=== PATIENT | female | born 1950 | race Caucasian/White ===

== ENCOUNTER 2021-10-23 23:47 | Emergency (ER) | payer MEDICARE, OTHER ==
[~2021-10-23] VITALS: Ht 160 cm; Wt 95.5 kg
[~2021-10-23 23:47] MED LIST: ASPIRIN E.C. 8181 MG PO; CALCIUM500 MG PO; FERROUS SU325 MG/TAB PO; FOLIC ACID0.4 MG PO; PRINIVIL20 MG PO; VITAMIN C500 MG PO; VITAMIN D31000 IU PO
[2021-10-24] VITALS: TEMP 101.5
[2021-10-24 00:50] LABS: BASO % 0.4 % (0.0-2.0); GRAN # 3.8 K/mm3 (1.4-6.5); GRAN % 72.4 % (42.2-75.2); HEMATOCRIT 48.2 % (37.0-47.0); HEMOGLOBIN 15.4 g/dl (12.5-16.0); LYMPH # 0.8 K/mm3 (1.2-3.4); LYMPH % 15.6 % (20.0-51.0); MEAN CELL VOLUME 88 fl (80.0-100.0); MEAN CORPUSCULAR HEMOGLOBIN 28 pg (27-31); MEAN CORPUSCULAR HGB CONC 32 g/dl (33.0-37.0); MEAN PLATELET VOLUME 10.3 fl (7.4-10.4); MONO # 0.6 K/mm3 (0.1-0.6); PLATELET COUNT 199 K/mm3 (130-400); RED BLOOD COUNT 5.49 M/mm3 (4.10-5.30); REDCELL DISTRIBUTION WIDTH-CV 14.8 % (11.5-14.5)
[2021-10-24 01:35] LABS: BILIRUBIN,TOTAL 0.4 mg/dL (0.2-1.2); CALCIUM 8.1 mg/dL (8.4-10.2); CREATININE, serum 1.42 mg/dL (0.57-1.11); POTASSIUM 5.7 mmol/L (3.5-4.5); TOTAL PROTEIN 6.3 gm/dL (6.2-8.1)
[2021-10-24] MEDS ORDERED: PREDNISONE20 MG PO (02:03)
[2021-10-24] MEDS ORDERED: AMOXICILLIN 8751 TAB PO (02:03)
[2021-10-24 02:06] VITALS: BP 134/78; PULSE 104
== END 2021-10-24 02:06 | disposition home or self-care (01) ==
LOC: COL.ER 23:47
PROVIDERS: Personal Emergency Response Attendant
DX: U07.1 COVID-19 (principal); E87.5 Hyperkalemia; J18.9 Pneumonia, unspecified organism; N28.9 Disorder of kidney and ureter, unspecified; J44.9 Chronic obstructive pulmonary disease, unspecified; Z87.891 Personal history of nicotine dependence; Z73.0 Burn-out
CPT/HCPCS: J0456; J0696; J7030; J7050

== ENCOUNTER → 2021-10-29 | Outpatient (CLI) | payer MEDICARE, OTHER ==
[~2021-10-29] MED LIST changes: +AMOXICILLIN 8751 TAB PO; +PREDNISONE20 MG PO
== END ==
LOC: COL.RAD 12:46
DX: J18.9 Pneumonia, unspecified organism (principal); J39.8 Other specified diseases of upper respiratory tract; R91.8 Other nonspecific abnormal finding of lung field; J47.9 Bronchiectasis, uncomplicated; J84.10 Pulmonary fibrosis, unspecified; D35.02 Benign neoplasm of left adrenal gland; Z90.49 Acquired absence of other specified parts of digestive tract

== ENCOUNTER 2021-11-13 10:23 | Emergency (ER) | payer MEDICARE, OTHER ==
[~2021-11-13] VITALS: Ht 160 cm; Wt 113.6 kg
[2021-11-13] MEDS ORDERED: SINGULAIR 110 MG/TAB PO (11:14)
[2021-11-13] MEDS ORDERED: FLOVENT 110MCG7.9 GM IH (11:15)
[2021-11-13] MEDS ORDERED: PHENERGAN 25 TA25 MG PO (11:16)
[2021-11-13] MEDS ORDERED: SPIRIVA RE2.5 MCG/Ac IH (11:18)
[2021-11-13] MEDS ORDERED: PROAIR HFA0.09 MG/AC IH (11:18)
[2021-11-13] MEDS ORDERED: RT ADVAIR 128 DISKUS IH (11:18)
[2021-11-13] MEDS ORDERED: XARELTO STARTER20 MG PO ×2 (13:36)
[2021-11-13 13:54] VITALS: BP 156/87
[2021-11-13 14:50] VITALS: PULSE 124; TEMP 98.8
== END 2021-11-13 15:00 | disposition home or self-care (01) ==
LOC: COL.ER 10:23
DX: I82.451 Acute embolism and thrombosis of right peroneal vein (principal); Z86.16 Personal history of COVID-19; Z79.01 Long term (current) use of anticoagulants

== ENCOUNTER → 2022-01-23 | Outpatient (CLI) | payer MEDICARE, OTHER ==
[~2022-01-23] MED LIST changes: +FLOVENT 110MCG7.9 GM IH; +PHENERGAN 25 TA25 MG PO; +PROAIR HFA0.09 MG/AC IH; +RT ADVAIR 128 DISKUS IH; +SINGULAIR 110 MG/TAB PO; +SPIRIVA RE2.5 MCG/Ac IH; +XARELTO STARTER20 MG PO
== END ==
LOC: COL.VAS 14:15
DX: I82.401 Acute embolism and thrombosis of unspecified deep veins of right lower extremity (principal)

== ENCOUNTER 2024-05-05 20:19 | Emergency (ER) | payer MEDICARE, OTHER ==
[~2024-05-05] VITALS: Ht 157.5 cm; Wt 81.8 kg
[2024-05-05 20:22] VITALS: TEMP 100.2
[2024-05-05 20:45] LABS: BASO # 0.1 K/mm3 (0.0-0.2); BASO % 0.7 % (0.0-2.0); EOS % 0.3 % (0.0-4.0); GRAN # 12.8 K/mm3 (1.4-6.5); GRAN % 84.3 % (42.2-75.2); HEMATOCRIT 40.8 % (37.0-47.0); HEMOGLOBIN 13.2 g/dl (12.5-16.0); LYMPH # 1.2 K/mm3 (1.2-3.4); LYMPH % 8.1 % (20.0-51.0); MEAN CELL VOLUME 91 fl (80.0-100.0); MEAN CORPUSCULAR HEMOGLOBIN 29 pg (27-31); MEAN CORPUSCULAR HGB CONC 32 g/dl (33.0-37.0); MEAN PLATELET VOLUME 10.2 fl (7.4-10.4); MONO # 0.9 K/mm3 (0.1-0.6); MONO % 6.1 % (1.7-9.3); PLATELET COUNT 333 K/mm3 (130-400); REDCELL DISTRIBUTION WIDTH-CV 13.9 % (11.5-14.5)
[2024-05-05 20:52] LABS: INR 1.1 (0.8-3.0); PROTHROMBIN TIME 11.4 SECONDS (9.7-12.8)
[2024-05-05 20:54] LABS: PARTIAL THROMBOPLASTIN TIME 31.7 SECONDS (26.0-37.0)
[2024-05-05 21:08] LABS: ALANINE AMINOTRANSFERASE 45 U/L (0-55); ALBUMIN 3.6 g/dL (3.4-4.8); ALKALINE PHOSPHATASE 152 U/L (40-150); ANION GAP 11 mmol/L (7-16); AST,SGOT 33 U/L (5-34); BILIRUBIN,TOTAL 0.3 mg/dL (0.2-1.2); BLOOD UREA NITROGEN 25 mg/dL (10-20); CALCIUM 9.3 mg/dL (8.4-10.2); CHLORIDE 105 mEq/L (98-107); CREATININE, serum 1.26 mg/dL (0.57-1.11); GLUCOSE 117 mg/dL (70-99); POTASSIUM 4.2 mEq/L (3.5-4.5); SODIUM 140 mEq/L (136-145); TOTAL PROTEIN 6.8 g/dl (6.2-8.1)
[2024-05-05 21:16] LABS: TROPONIN-I < 0.010 ng/mL (0.00-0.033)
[2024-05-05 22:43] LABS: COLLECTION METHOD CATHETER
[2024-05-05 22:52] LABS: PH 6.5 (5.0-8.5); URINE APPEARANCE CLEAR (CLEAR/HAZY); URINE BLOOD NEGATIVE (NEGATIVE); URINE COLOR YELLOW (YELLOW); URINE GLUCOSE NEGATIVE (NEGATIVE); URINE KETONE 1+ (NEGATIVE); URINE NITRATE NEGATIVE (NEGATIVE); URINE PROTEIN(semi-quant) 1+ (NEGATIVE)
[2024-05-05 23:00] LABS: MUCOUS PRESENT (NOT PRESENT); SQUAMOUS EPITHELIAL 0-2 /hpf (0-10); URINE RBC 0-2 /hpf (0-2); URINE WBC 0-2 /hpf (0-2)
[2024-05-05 23:01] LABS: URINE BACTERIA NONE SEEN /hpf (NONE SEEN)
[2024-05-05] MEDS ORDERED: HCTZ 25MG TAB25 MG PO (23:10)
[2024-05-05 23:49] VITALS: BP 147/66; PULSE 85
== END 2024-05-05 23:58 | disposition home or self-care (01) ==
LOC: COL.ER 20:19
PROVIDERS: Emergency Medicine
DX: I10 Essential (primary) hypertension (principal); Z87.891 Personal history of nicotine dependence
CPT/HCPCS: J1920

== ENCOUNTER 2024-05-07 08:46 | Inpatient (IN) | payer MEDICARE, OTHER ==
[2024-05-07] VITALS (678 sets, daily range): BP systolic 107–155; BP diastolic 62–109; PULSE 52–133; TEMP 99.3–100.3; O2SAT 78–100
[~2024-05-07] VITALS: Ht 157.5 cm; Wt 88.4 kg
[~2024-05-07 08:46] MED LIST changes: +HCTZ 25MG TAB25 MG PO
[2024-05-07 09:23] LABS: COLLECTION METHOD CATHETER
[2024-05-07 09:24] LABS: BASO # 0.1 K/mm3 (0.0-0.2); BASO % 0.4 % (0.0-2.0); GRAN # 14.9 K/mm3 (1.4-6.5); GRAN % 88.2 % (42.2-75.2); HEMATOCRIT 42.3 % (37.0-47.0); HEMOGLOBIN 13.9 g/dl (12.5-16.0); LYMPH # 0.7 K/mm3 (1.2-3.4); LYMPH % 4.4 % (20.0-51.0); MEAN CELL VOLUME 89 fl (80.0-100.0); MEAN CORPUSCULAR HEMOGLOBIN 29 pg (27-31); MEAN CORPUSCULAR HGB CONC 33 g/dl (33.0-37.0); MEAN PLATELET VOLUME 10.2 fl (7.4-10.4); MONO # 1.1 K/mm3 (0.1-0.6); MONO % 6.5 % (1.7-9.3); PLATELET COUNT 295 K/mm3 (130-400); RED BLOOD COUNT 4.74 M/mm3 (4.10-5.30); REDCELL DISTRIBUTION WIDTH-CV 14.4 % (11.5-14.5)
[2024-05-07] MEDS ORDERED: NS 1,000 ML IV ONE (09:30)
[2024-05-07 09:33] LABS: PH 6.5 (5.0-8.5); URINE APPEARANCE CLEAR (CLEAR/HAZY); URINE BLOOD 2+ (NEGATIVE); URINE COLOR YELLOW (YELLOW); URINE GLUCOSE NEGATIVE (NEGATIVE); URINE KETONE TRACE (NEGATIVE); URINE NITRATE NEGATIVE (NEGATIVE); URINE PROTEIN(semi-quant) 1+ (NEGATIVE)
[2024-05-07 09:36] LABS: ALBUMIN 3.6 g/dL (3.4-4.8); BILIRUBIN,TOTAL 0.6 mg/dL (0.2-1.2); CALCIUM 9.8 mg/dL (8.4-10.2); CREATININE, serum 1.39 mg/dL (0.57-1.11); POTASSIUM 3.4 mEq/L (3.5-4.5); TOTAL PROTEIN 7.2 g/dl (6.2-8.1)
[2024-05-07] MEDS ORDERED: dilTIAZem 25 MG/5 ML VIAL IV ONE ×2 (10:15→11:00)
[2024-05-07] MEDS ORDERED: Amiodarone 450 MG in D5W Excel 250 ML IV SCH ×2 (11:14→17:14)
[2024-05-07] MEDS ORDERED: Acetaminophen 500 MG TAB PO PRN (13:00)
[2024-05-07] MEDS ORDERED: Ondansetron 4 MG/2 ML VIAL IV PRN (13:00)
[2024-05-07] MEDS ORDERED: NS 1,000 ML IV SCH (13:15)
[2024-05-07] MEDS ORDERED: *Potassium Replacement Protocol MC SCH (13:15)
[2024-05-07] MEDS ORDERED: Potassium Bicarbonate/Citrate 20 MEQ Effervescent TAB PO SCH (13:15)
--- NOTE | 2024-05-07 14:17 | NUR ---
SW met with patient to complete initial assessment for discharge planning. Patient verified that she lives in [place] in her home with her daughter Mari Bhakta ([phone]) living with her for the past [address] Samuel Peck as her PCP and [facility] in [place]. Patient uses a cane, walker, bsc, toilet riser, shower chair and grab bars. Patient states she does not drive any longer. She states she was independent with all activities until about 2-3 weeks ago when she became weak and having falls. Discharge plan to be determined based on hospital course. Discharge plan: TBD
[2024-05-07] MEDS ORDERED: Albuterol/Ipratropium 3 MG-0.5 MG/3 ML Neb Soln IH PRN (15:15)
--- NOTE | 2024-05-07 18:44 | NUR ---
PT TEMP NOTED TO BE 102.5F ORALLY. TYLENOL GIVEN. WILL CONTINUE TO MONITOR.
--- NOTE | 2024-05-07 19:00 | NUR ---
DAUGHTER AT THE BEDSIDE. PT HAS BEEN RUNNING A TEMP 100 TO 100.3. UA NEGATIVE. BLOOD CULTURES PENDING. TYLENOL GIVEN ON DAY SHIFT. PT STABLE ON ROUNDS. NO SIGN OF DISTRESS AT THIS TIME. CONTINUE PLAN OF CARE.
--- NOTE | 2024-05-07 19:52 | NUR ---
PT CONVERTED TO SR WITH PJC'S
[2024-05-08] VITALS (775 sets, daily range): BP systolic 97–152; BP diastolic 59–78; PULSE 50–72; TEMP 98.1–100; O2SAT 72–100
--- NOTE | 2024-05-08 | NUR ---
CARDIZEM TURNED OFF 2244. PT IS BRADYCARDIC. NO SIGN OF DISTRESS AT THIS TIME.
[2024-05-08 05:34] LABS: BASO # 0.1 K/mm3 (0.0-0.2); BASO % 0.5 % (0.0-2.0); EOS % 0.1 % (0.0-4.0); GRAN # 11.8 K/mm3 (1.4-6.5); GRAN % 81.4 % (42.2-75.2); LYMPH # 1.3 K/mm3 (1.2-3.4); LYMPH % 9.3 % (20.0-51.0); MEAN CORPUSCULAR HGB CONC 32 g/dl (33.0-37.0); MEAN PLATELET VOLUME 10.2 fl (7.4-10.4); MONO # 1.2 K/mm3 (0.1-0.6); MONO % 8.4 % (1.7-9.3); PLATELET COUNT 240 K/mm3 (130-400); RED BLOOD COUNT 4.02 M/mm3 (4.10-5.30); REDCELL DISTRIBUTION WIDTH-CV 14.4 % (11.5-14.5)
[2024-05-08 05:36] LABS: HEMATOCRIT 35.8 % (37.0-47.0); HEMOGLOBIN 11.6 g/dl (12.5-16.0); MEAN CELL VOLUME 89 fl (80.0-100.0); MEAN CORPUSCULAR HEMOGLOBIN 29 pg (27-31)
--- NOTE | 2024-05-08 06:00 | NUR ---
PT IS BRADYCARDIC TO SR. STABLE ON ROUNDS. RESPIRATIONS EVEN AND UNLABORED. POTASSIUM GIVEN IN 90 ML OF JUICE. PT INFORMED THAT SHE HAD CONVERTED TO NSR. PT TROPONIN TRENDING UP. DISCUSSED WITH PT THAT SHE MAY NEED A CARDIAC CATH OR STRESS TEST, BUT HEALTH INSURANCE AGENT WILL DETERMINE THAT. NO SIGN OF DISTRESS AT THIS TIME.
[2024-05-08 06:06] LABS: TSH w REFLEX 1.159 uIU/mL (0.350-4.940)
[2024-05-08 06:07] LABS: CALCIUM 8.5 mg/dL (8.4-10.2); CHOLESTEROL RISK RATIO 3.7; CREATININE, serum 1.24 mg/dL (0.57-1.11); MAGNESIUM 1.7 mg/dL (1.6-2.6)
[2024-05-08 06:11] LABS: TROPONIN-I 0.141 ng/mL (0.00-0.033)
[2024-05-08 06:12] LABS: POTASSIUM 2.9 mEq/L (3.5-4.5)
[2024-05-08] MEDS ORDERED: Potassium Bicarbonate/Citrate 20 MEQ Effervescent TAB PO SCH (06:15)
--- NOTE | 2024-05-08 08:10 | NUR ---
Patient is resting, able to answer questions appropriately. IV fluids infusing without complications. Voiding without complications. NPO for potential stress test this morning. Will continue to monitor for changes.
[2024-05-08] MEDS ORDERED: Potassium Chloride 100 ML IV SCH (08:30)
[2024-05-08] MEDS ORDERED: *Potassium Replacement Protocol MC SCH (08:30)
[2024-05-08] MEDS ORDERED: Magnesium Sulfate 4% 50 ML IV ONE (09:15)
--- NOTE | 2024-05-08 12:19 | NUR ---
Nicki tolerated loop insertion with Dr. Walker with no problem. Please see loop insertion flowsheet for record of procedure. Incision closed with mastisol and steristrips, dressed with sterile gauze and paper tape. Pt set up with [employer] relay. I reviewed set up procedure for this bedside monitor with pt and nurse Elsa.
--- NOTE | 2024-05-08 13:40 | NUR ---
Initial visit; Patient thanked [employer] for looking in on her and offering Spiritual Care. Nicki stated that she would like [employer] to keep her in her prayers. [employer] will do so.
--- NOTE | 2024-05-08 14:29 | NUR ---
tray line worker reviewed PT and OT evaluations. Both recommended Home with Home Health vs SNF. ROMEO met with patient and her daughter, Mari, to discuss recommendations. Mari stated this was patient's decision. ROMEO explained home health and SNF. SW provided the Medicare.gov list of options. Patient was uncertain at this time if she wanted SNF or home health. ROMEO explained she or another social media strategist would follow up with her about her choice of service and the agency she would like the referral sent to whether that is home health or SNF. ROMEO ensured patient and Mari have her phone number if needed. Patient and daughter understood and did not have any questions at this time. SW notified patient's nurse.
--- NOTE | 2024-05-08 16:15 | NUR ---
arrived on unit per WC from ICU and assisted into bed, resting quielty without c/os
--- NOTE | 2024-05-08 16:40 | NUR ---
Report given to RN on medical floor. Potassium currently being replaced. Belongings gathered and escorted to room 315 via wheelchair. No complications noted.
--- NOTE | 2024-05-08 17:09 | NUR ---
resting in bed watching TV, alert and oriented, skin warm and dry, color normal, heart rate strong and regular, lungs CTA but diminished in bases, Abdomen soft and non distended and and bowel sounds present in all 4 quads, peripheral pulses present in 4 extremiteis, has peripheral INT in R&L Forearm, and intact without redness or swelling, has 1cm scabbed area to left baez that is from prior to admission, assisted her with ordering supper, denies pain or needs,
[2024-05-08 17:38] LABS: CALCIUM 8.2 mg/dL (8.4-10.2); CREATININE, serum 1.28 mg/dL (0.57-1.11)
--- NOTE | 2024-05-08 18:54 | NUR ---
PATIENT RESTING IN BED WTIH TV ON WITH FAMILY AT BEDSIDE WITH NO ACUTE DISTRESS NOTED. PATIENT ON ROOM AIR. INTs TO RIGHT AC AND LEFT FOREARM INTACT WITH NO COMPLICATIONS NOTED. TELEMETRY INTACT. BEDSIDE SHIFT REPORT COMPLETED WITH ROYCE AT THIS TIME. PATIENT DENIES ANY NEEDS. BED IN LOW POSITION WITH WHEELS LOCKED WITH RAILS UP X3 AND CALL LIGHT WITHIN REACH.
--- NOTE | 2024-05-08 19:09 | NUR ---
bedside shift report given to MALDONADO Ta
--- NOTE | 2024-05-08 19:40 | NUR ---
PATIENT RESTING IN BED WITH TV ON WITH FAMILY AT BEDSIDE WITH NO ACUTE DISTRESS NOTED. PATIENT ON 1 LITER OF OXYGEN VIA NC. INTs TO LEFT FOREARM AND RIGHT AC INTACT WITH NO COMPLICATIONS NOTED. TELEMETRY INTACT. PATIENT ASSISTED UP TO BATHROOM AT THIS TIME PER PATIENT REQUEST. PATIENT BED, GOWN, AND SOCKS CHANGED DUE TO INCONTINENT URINE ACCIDENT. PATIENT GIVEN WARM WIPES AND COMPLETED OWN DAVID CARE. PATIENT ASSISTED BACK TO BED AND HELPED TO REPOSITION FOR COMFORT. ASSESSMENT AND MEDICATION ADMINISTRATION COMPLETED AT THIS TIME. PATIENT TOLERATED WELL. PATIENT DENIES ANY OTHER NEEDS. BED IN LOW POSITION WITH WHEELS LOCKED WITH RAILS UP X3 AND CALL LIGHT WITHIN REACH. BED ALARM ON.
[2024-05-08] MEDS ORDERED: Cephalexin 500 MG CAP PO SCH (21:00)
[2024-05-09] VITALS (18 sets, daily range): BP systolic 102–157; BP diastolic 53–84; PULSE 50–65; TEMP 97.5–98.5
--- NOTE | 2024-05-09 08:30 | NUR ---
PATIENT A&O X4. VSS. NO C/O N/V OR PAIN. PATIENT NPO D/T STRESS TEST THIS MORNING. MORNING MEDICATIONS ADMINISTERED AND SHIFT ASSESSMENT COMPLETE. PATIENT TRANSFERS WITH ASSIST X1 WITH WALKER AND GAIT BELT. PATIENT ON 1 LITER OF OXYGEN VIA NASAL CANNULA. PLANNING TO WEAN OFF OF OXYGEN TODAY. IV IN LFA AND RAC INTACT AND PATENT. NO REDNESS/SWELLING/EDEMA. NO FURTHER NEEDS AT THIS TIME. CALL LIGHT WITHIN REACH.
--- NOTE | 2024-05-09 09:30 | NUR ---
PATIENT TRANSPORTED TO RADIOLOGY FOR LEXISCAN BY WHEELCHAIR. RADIOLOGY STAFF ACCOMPANYING PATIENT.
[2024-05-09] MEDS ORDERED: Regadenoson 0.08 MG/ML 5 ML SYRINGE IV SCH (10:13)
--- NOTE | 2024-05-09 11:00 | NUR ---
PATIENT BROUGHT BACK TO ROOM FROM [facility] VIA WHEELCHAIR. PATIENT WAS TRANSPORTED BY RADIOLOGY STAFF.
[2024-05-09 11:39] LABS: BASO # 0.1 K/mm3 (0.0-0.2); EOS # 0.2 K/mm3 (0.0-0.7); EOS % 1.5 % (0.0-4.0); GRAN # 7.4 K/mm3 (1.4-6.5); HEMOGLOBIN 11.8 g/dl (12.5-16.0); LYMPH # 1.4 K/mm3 (1.2-3.4); LYMPH % 13.9 % (20.0-51.0); MEAN CELL VOLUME 91 fl (80.0-100.0); MEAN CORPUSCULAR HEMOGLOBIN 29 pg (27-31); MEAN CORPUSCULAR HGB CONC 32 g/dl (33.0-37.0); MEAN PLATELET VOLUME 10.4 fl (7.4-10.4); MONO # 1.1 K/mm3 (0.1-0.6); MONO % 11.1 % (1.7-9.3); PLATELET COUNT 225 K/mm3 (130-400); RED BLOOD COUNT 4.02 M/mm3 (4.10-5.30); REDCELL DISTRIBUTION WIDTH-CV 14.3 % (11.5-14.5)
[2024-05-09 11:40] LABS: HEMATOCRIT 36.4 % (37.0-47.0)
--- NOTE | 2024-05-09 12:31 | NUR ---
LAB CALLED REGARDING CIRITICAL TROPONIN LAB. NOTIFIED CARDS AND TALKED TO STACY BONNER. DECIDING NOT TO DO ANYTHING AT THIS TIME D/T LEXISCAN RESULTS.
[2024-05-09 12:32] LABS: TROPONIN-I 0.036 ng/mL (0.00-0.033)
[2024-05-09 13:41] LABS: CALCIUM 8.7 mg/dL (8.4-10.2); CREATININE, serum 1.13 mg/dL (0.57-1.11); MAGNESIUM 2.1 mg/dL (1.6-2.6)
--- NOTE | 2024-05-09 14:18 | NUR ---
Corporate Director Of Pharmacy met with patient and daughter, Mari to review discharge plan. SW advised Hospitalist recommended SNF during rounding today. Patient did not want to go to [facility] in [place]. Patient was agreeable to have referrals sent to [facility], [facility], and [place] [facility]. SW gave referrals to all four. Discharge Plan: SNF vs [facility]
--- NOTE | 2024-05-09 15:30 | NUR ---
EQUIPMENT SERVICE ASSOCIATE NOTIFIED ME ABOUT PATIENT'S HR IN HIGH 40'S. NOTIFIED STACY BONNER AND SHE LOOKED OVER TELEMTRY WITH DR. JIN AND THEY DECIDED TO DECREASE SOTALOL DOSE. THE NEW DOSE WILL BE GIVEN THIS EVENING.
--- NOTE | 2024-05-09 15:39 | NUR ---
[facility] accepted referral.
--- NOTE | 2024-05-09 19:12 | NUR ---
PATIENT UP TO BATHROOM AT THIS TIME WITH ASSISTANCE. DAUGHTER AT BEDSIDE. BEDISDE SHIFT REPORT COMPLETED WITH VITOR. PATIENT ASSISTED TO REPOSITION IN BED FOR COMFORT. PATIENT DENIES ANY NEEDS AT THIS TIME. BED IN LOW POSITION WITH WHEELS LOCKED WITH RAILS UP X2 AND CALL LIGHT WITHIN REACH.
--- NOTE | 2024-05-09 19:40 | NUR ---
PATIENT RESTING IN BED WITH TV ON WITH NO FAMILY PRESENT WITH NO ACUTE DISTRESS NOTED. PATIETN ON ROOM AIR. INTs TO RIGHT AC AND LEFT FOREARM INTACT WITH NO COMPLICATIONS NOTED. TELMETRY INTACT. PATIENT REQUESTED TO USE BATHROOM AND HELP TO AMBULATE TO BATHROOOM WITH WALKER. PATIENT VOIED AND DID OWN DAVID CARE. BED SHEETS CHANGED. GOWN CHANGED AND PULL UP GIVEN. PATIENT BRUSHED TEETH. ASSESSMENT AND MEDICATION ADMINISTRATION COMPLETED AT THIS TIME. PATIENT TOLERATED WELL. ALL NEEDS MET. BED IN LOW POSITION WITH WHEELS LOCKED WITH RAILS UP X2 AND CALL LIGHT WITHIN REACH. BED ALARM ON.
[2024-05-10] VITALS (7 sets, daily range): BP systolic 111–154; BP diastolic 64–77; PULSE 49–63; TEMP 97.7–98.5
[2024-05-10 07:57] LABS: BASO # 0.1 K/mm3 (0.0-0.2); BASO % 1.1 % (0.0-2.0); EOS # 0.2 K/mm3 (0.0-0.7); EOS % 2.8 % (0.0-4.0); GRAN # 4.1 K/mm3 (1.4-6.5); GRAN % 58.1 % (42.2-75.2); LYMPH # 1.7 K/mm3 (1.2-3.4); LYMPH % 23.4 % (20.0-51.0); MEAN CELL VOLUME 92 fl (80.0-100.0); MEAN CORPUSCULAR HEMOGLOBIN 29 pg (27-31); MEAN CORPUSCULAR HGB CONC 31 g/dl (33.0-37.0); MEAN PLATELET VOLUME 10.8 fl (7.4-10.4); MONO % 14.3 % (1.7-9.3); PLATELET COUNT 232 K/mm3 (130-400); RED BLOOD COUNT 3.79 M/mm3 (4.10-5.30); REDCELL DISTRIBUTION WIDTH-CV 14.2 % (11.5-14.5)
[2024-05-10 08:10] LABS: CALCIUM 8.7 mg/dL (8.4-10.2); CREATININE, serum 1.02 mg/dL (0.57-1.11); MAGNESIUM 2.1 mg/dL (1.6-2.6)
--- NOTE | 2024-05-10 09:30 | NUR ---
Patient is sitting up in chair, just finishing working with OT. Alert and oriented x 4, VSS. Denies any pain or discomfort. Assessment completed, meds given. No further needs at this time. Call light within reach.
[2024-05-10] MEDS ORDERED: CEPHALEXIN500 M1 PO (13:47)
[2024-05-10] MEDS ORDERED: ASPIRIN E.C. 8181 MG PO (13:48)
[2024-05-10] MEDS ORDERED: BETAPACE 80MG80 MG PO (13:48)
--- NOTE | 2024-05-10 13:50 | NUR ---
Call placed to MALDONADO Grimm, at [facility] to give report.
[2024-05-10] MEDS ORDERED: Albuterol/Ipratropium 3 MG-0.5 MG/3 ML Neb Soln IH SCH (14:00)
--- NOTE | 2024-05-10 14:51 | NUR ---
Field Manager contacted Mary at [facility] who stated she is still reviewing referral and would get back with ROMEO. ROMEO met with patient and spoke with daughter about options. First preference is [facility], then [facility], then [facility]. ROMEO attempted to contact Mary a couple times and did not hear back so at 1130, ROMEO contacted [facility] about taking today. [facility] advised they will not take patient's so at day 20 she would have a copay. Patient's daughter Mari would like patient to go somewhere that takes . ROMEO then contacted Melecio at [facility] who can accept today. ROMEO met with patient to present and review IM form. Patient verbalized understanding and provided signature. ROMEO placed form in chart and provided copy to patient. After arrangements were made for [facility], Mary followed up with ROMEO and advised they can accept this afternoon. ROMEO checked with patient and her daughter, Mari. They still prefer [facility]. ROMEO notified Mleecio at [facility] that first preference accepted. ROMEO faxed discharge orders to Mary. Patient's daughter is at bedside and will transport. Mary advised there is no dr to dr needed. Report number given to RN. Discharge Plan; [facility]
== END 2024-05-10 15:19 | disposition swing bed (61) | DRG 260 ==
LOC: COL.ER 08:46 → ICU 11:03 → MEDICAL 05-08 16:20
PROVIDERS: Hospitalist; Personal Emergency Response Attendant; ADMIT Internal Medicine
PROC: 0JH632Z Insertion of Monitoring Device into Chest Subcutaneous Tissue and Fascia, Percutaneous Approach (ICD-10-PCS; principal; 2024-05-08)
DX: I48.0 Paroxysmal atrial fibrillation (principal); I21.A1 Myocardial infarction type 2; J96.01 Acute respiratory failure with hypoxia; Q21.12 Patent foramen ovale; J44.9 Chronic obstructive pulmonary disease, unspecified; L89.152 Pressure ulcer of sacral region, stage 2; D72.829 Elevated white blood cell count, unspecified; Z96.642 Presence of left artificial hip joint; R53.81 Other malaise; M19.90 Unspecified osteoarthritis, unspecified site; I35.1 Nonrheumatic aortic (valve) insufficiency; N28.9 Disorder of kidney and ureter, unspecified; Z20.822 Contact with and (suspected) exposure to COVID-19; E87.70 Fluid overload, unspecified; I12.9 Hypertensive chronic kidney disease with stage 1 through stage 4 chronic kidney disease, or unspecified chronic kidney disease; N18.30 Chronic kidney disease, stage 3 unspecified; E87.6 Hypokalemia; Z87.891 Personal history of nicotine dependence; Z90.49 Acquired absence of other specified parts of digestive tract
CPT/HCPCS: A9500-JZ; C1764; J0282; J1650; J1920; J2405; J2785; J3475; J3480; J7030; J7060